=== PATIENT | female | born 1965 | race Caucasian/White ===

== ENCOUNTER 2019-07-16 20:11 | Emergency (ER) | payer OTHER ==
[~2019-07-16] VITALS: Ht 175.3 cm; Wt 86.2 kg
[2019-07-16 20:22] VITALS: BP 125/67
--- NOTE | 2019-07-16 20:23 | NUR ---
ED Nurse Note: Patient walked into ER c/o right wrist pain, states that she got hit by a door at work, reports of the door not hitting her head. AAO x4, VSS at this time, skin is dry warm to touch.
--- NOTE | 2019-07-16 20:38 | Emergency Room Report ---
History of Present Illness General Chief Complaint: Pain Source: Patient Present Illness HPI Patient is a 53-year-old female who presented after increased right upper extremity discomfort. Patient reports having increased pain to the right side of her neck as well as to her right wrist. She reports being struck with a door at work. Patient states that she did not have any loss of consciousness. She reports having some burning sensation to the wrist area. She reports having prior history of carpal tunnel disease as well as prior injury to her neck. 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 She reports having used some Voltaren gel which helped with some of the swelling.Patient reports having some numbness to the dorsal aspect of her right hand in the webspace between the thumb and index finger. She also reports having some pain to the right wrist at the ulnar side. Allergies: Coded Allergies: No Known Allergies (Unverified , 07/16/19) Patient History Past Medical History: see triage record Last Menstrual Period: n/a Reviewed Nursing Documentation: PMH: Agreed; PSxH: Agreed Nursing Documentation-PMH Past Medical History: No Stated History Review of Systems All Other Systems: negative except mentioned in HPI Physical Exam Vital Signs Date Time Temp Pulse Resp B/P (MAP) Pulse Ox O2 Delivery O2 Flow Rate FiO2 07/16/19 20:12 98.8 73 18 125/67 (86) 96 Room Air General Appearance: well appearing, no apparent distress, alert, GCS 15 Head: normocephalic, atraumatic ENT: hearing grossly normal, normal voice Neck: full range of motion, supple Respiratory: normal inspection, no respiratory distress, speaking full sentences Cardiovascular #1: normal inspection Gastrointestinal: normal inspection Musculoskeletal: normal inspection, back normal, no calf tenderness Neurologic: normal inspection, alert, oriented x3, responsive, normal gait Psychiatric: mood/affect normal Skin: no rash Medical Decision Making Diagnostic Impression: Primary Impression: Hit by object Additional Impressions: Neck strain Right wrist sprain ER Course Patient presented for neck and wrist pain after reportedly being struck by a door. Differential diagnosis include was not limited to fracture, dislocation, Ligamentous injury, among others. x-ray imaging of the right wrist 3 views read by radiology showed normal bony alignment without an fracture. Patient was noted to have some tenderness to the ulnar collateral ligament as well as some numbness to the dorsum of the Hand. Patient's cervical spine was clinically cleared and patient was noted to have normal range of motion. There is some muscle tenderness to the lateral paraspinous muscles. Patient was noted to have normal mental status and appears to be stable for outpatient management. Patient will be discharged home. She will be placed on light duty. She is not to lift greater than 15 pounds. Limited use of the right hand. Patient is follow-up with workers [facility] physician. Last Vital Signs Date Time Temp Pulse Resp B/P (MAP) Pulse Ox O2 Delivery O2 Flow Rate FiO2 07/16/19 20:22 98.8 79 18 125/67 96 Room Air Status: improved Disposition: HOME, SELF-CARE Condition: Stable Reggie Erazo MD Jul 16, 2019 20:38
[2019-07-16] MEDS ORDERED: Ketorolac 60mg Inj IM ONE (20:45)
--- NOTE | 2019-07-16 21:11 | Diagnostic Imaging Report ---
EXAM: XR Right Wrist Complete, 3 or More Views CLINICAL HISTORY: PAIN TECHNIQUE: Frontal, lateral and oblique views of the right wrist. COMPARISON: No relevant prior studies available. FINDINGS: Bones/joints: Unremarkable. No acute fracture. No dislocation. Soft tissues: Unremarkable. No radiopaque foreign body. IMPRESSION: Normal right wrist x-rays.
[2019-07-16] MEDS ORDERED: IBUPROFEN600 MG ORAL (21:22)
[2019-07-16 21:49] VITALS: BP 125/67
--- NOTE | 2019-07-16 21:50 | NUR ---
ED Nurse Note: Pt cleared by health care Provider for discharge. DC instructions/prescription was given and explained to pt and verbalized understanding of teachings. All medical deviecs such as ID band removed. Pt is AAO x4, ambulatory and left with all personal belongings.
== END 2019-07-16 21:50 | disposition home or self-care (01) ==
LOC: EMR 20:41
DX: S16.1XXA Strain of muscle, fascia and tendon at neck level, initial encounter (principal); S63.501A Unspecified sprain of right wrist, initial encounter; W20.8XXA Other cause of strike by thrown, projected or falling object, initial encounter; Y92.511 Restaurant or cafe as the place of occurrence of the external cause; Y99.0 Civilian activity done for income or pay
CPT/HCPCS: 96372; 99283